=== PATIENT | male | born 1975 | race African-American/Black ===

== ENCOUNTER 2016-10-17 12:49 | Emergency (ER) | payer SELFPAY ==
[2016-10-17] MEDS ORDERED: Lidocaine 1% 20 ML MDV ONE (13:03)
[2016-10-17] MEDS ORDERED: Clindamycin 150 MG CAP ONE ×2 (13:18→13:20)
== END 2016-10-17 13:22 ==
LOC: NAV ERS 12:49
DX: K12.2 Cellulitis and abscess of mouth (principal); F17.210 Nicotine dependence, cigarettes, uncomplicated; Z79.899 Other long term (current) drug therapy
CPT/HCPCS: 40800; J2001

== ENCOUNTER 2017-04-27 02:59 | Emergency (ER) | payer SELFPAY ==
[2017-04-27] MEDS ORDERED: Ondansetron HCl/PF 4 MG/2 ML Vial ONE (03:28)
[2017-04-27] MEDS ORDERED: Pantoprazole 40 MG VIAL ONE ×2 (03:29→03:34)
[2017-04-27] MEDS ORDERED: Mag-Al Plus 1200 MG/1200 MG/120 MG/30 ML UDCUP ONE (03:29)
[2017-04-27] MEDS ORDERED: Lidocaine Viscous Sol 2% 15 ml UD Cup ONE (03:30)
[2017-04-27 03:36] LABS: #Basophils 0.1 thou/uL (0.0-0.2); #Eosinphils 0.3 thou/uL (0.0-0.7); #Monocytes 0.8 thou/uL (0.11-0.59); #Neutrophils 4.2 thou/uL (1.40-6.50); %Basophils 1.2 % (0.0-1.0); %Eosinophils 3.7 % (0.0-10.0); %Lymphocytes 27.4 % (21.0-51.0); %Monocytes 11.1 % (0.0-10.0); %Neutrophils 56.6 % (42.0-75.0); Hemoglobin 16.2 g/dL (14.0-18.0); Mean Corpuscular HGB CONC 33.8 g/dL (32.0-36.0); Mean Corpuscular Volume 91.8 fl (80.0-94.0); Mean Platelet Volume 9.4 fL (7.4-10.4); Platelet Count 197 thou/uL (130-400); RBC Distribution Width 12.5 % (11.5-14.5); Red Blood Cell (RBC) Count 5.22 mill/uL (4.70-6.10); White Blood Cell (WBC) Count 7.3 thou/uL (4.8-10.8)
[2017-04-27 03:52] LABS: ALT (SGPT) 37 U/L (8-55); AST (SGOT) 27 U/L (5-34); Albumin 3.8 g/dL (3.5-5.0); Alkaline Phosphatase 131 U/L (40-150); Anion Gap 12 mmol/L (10-20); BUN (Urea Nitrogen) 10 mg/dL (8.9-20.6); Bilirubin, Total 0.3 mg/dL (0.2-1.2); CKMB 2.2 ng/mL (0-6.6); Calc. Creatinine Clearance 0 mL/min (70-130); Calcium 9.1 mg/dL (7.8-10.44); Carbon Dioxide 22 mmol/L (22-29); Chloride 108 mmol/L (98-107); Estimated GFR-MDRD Greater than 90; Globulin 4.3 g/dL (2.4-3.5); Glucose 116 mg/dL (70-105); Lipase 18 U/L (8-78); Potassium 4.1 mmol/L (3.5-5.1); Protein, Total 8.1 g/dL (6.0-8.3); Sodium 138 mmol/L (136-145); Troponin I Less than 0.010 ng/mL (< 0.028)
[2017-04-27] MEDS ORDERED: Cyclobenzaprine 10 MG TAB ONE (04:25)
--- NOTE | 2017-04-27 07:58 | RAD ---
PA AND LATERAL VIEWS CHEST: HISTORY: Epigastric pain. FINDINGS: The heart size is normal. The lungs are expanded without focal areas of consolidation, pneumothorax , or pleural effusions. No acute osseous abnormalities are seen. IMPRESSION: No radiographic evidence of acute cardiopulmonary process. POS: [facility]
--- NOTE | 2017-04-27 08:10 | RAD ---
ABDOMEN 2 VIEWS: HISTORY: Epigastric pain. FINDINGS/IMPRESSION: No free air or differential fluid levels are seen. The bowel gas pattern is unremarkable. There ar e mild degenerative changes in the spine. POS: [facility]
== END 2017-04-27 04:40 | disposition home or self-care (01) ==
LOC: NAV ERS 02:59
DX: S39.011A Strain of muscle, fascia and tendon of abdomen, initial encounter (principal); F17.210 Nicotine dependence, cigarettes, uncomplicated; X50.9XXA Other and unspecified overexertion or strenuous movements or postures, initial encounter
CPT/HCPCS: 71020; 74020; 80053; 82150; 82553; 83690; 84484; 85025; 93005; 96374; C9113; J2270; J2405

== ENCOUNTER 2017-06-21 01:39 | Emergency (ER) | payer SELFPAY ==
[2017-06-21] MEDS ORDERED: Mag-Al Plus 1200 MG/1200 MG/120 MG/30 ML UDCUP ONE (02:23)
[2017-06-21] MEDS ORDERED: Famotidine 20 MG TAB ONE (02:24)
== END 2017-06-21 02:41 | disposition home or self-care (01) ==
LOC: NAV ERS 01:39
DX: K21.9 Gastro-esophageal reflux disease without esophagitis (principal); F17.210 Nicotine dependence, cigarettes, uncomplicated
CPT/HCPCS: 99283

== ENCOUNTER 2017-07-08 03:13 | Emergency (ER) | payer SELFPAY ==
[2017-07-08] MEDS ORDERED: Nitroglycerin 0.4 MG TAB (25 Tab Bottle) ONE (03:33)
[2017-07-08 03:51] LABS: PTT 27.7 SEC (22.9-36.1); Prothrombin Time 13.6 SEC (12.0-14.7)
[2017-07-08 03:59] LABS: ALT (SGPT) 25 U/L (8-55); AST (SGOT) 24 U/L (5-34); Albumin 3.9 g/dL (3.5-5.0); Alkaline Phosphatase 137 U/L (40-150); Anion Gap 14 mmol/L (10-20); BUN (Urea Nitrogen) 10 mg/dL (8.9-20.6); Bilirubin, Total 0.3 mg/dL (0.2-1.2); Calc. Creatinine Clearance 0 mL/min (70-130); Calcium 9.1 mg/dL (7.8-10.44); Carbon Dioxide 23 mmol/L (22-29); Chloride 106 mmol/L (98-107); Estimated GFR-MDRD 79; Globulin 4.2 g/dL (2.4-3.5); Glucose 106 mg/dL (70-105); Lipase 14 U/L (8-78); Magnesium 2.3 mg/dL (1.6-2.6); Potassium 3.9 mmol/L (3.5-5.1); Protein, Total 8.1 g/dL (6.0-8.3); Sodium 139 mmol/L (136-145)
[2017-07-08 04:00] LABS: CKMB 1.9 ng/mL (0-6.6); Troponin I Less than 0.010 ng/mL (< 0.028)
[2017-07-08 04:01] LABS: Band 9 % (5-11); Eosinophils 4 % (0-10); Hemoglobin 16.4 g/dL (14.0-18.0); Lymphocytes 21 % (21-51); MDiff Complete? YES; Mean Corpuscular HGB CONC 31.6 g/dL (32.0-36.0); Mean Corpuscular Hemoglobin 31.1 pg (27.0-31.0); Mean Corpuscular Volume 98.5 fl (80.0-94.0); Mean Platelet Volume 8.9 fL (7.4-10.4); Monocytes 2 % (0-10); Neutrophil 62 % (42-75); PLT Morphology Comment Appears Adequate; Platelet Count 221 thou/uL (130-400); RBC Distribution Width 12.3 % (11.5-14.5); RBC Morphology Normal; Reactive Lymphocytes 2 % (0-10); Red Blood Cell (RBC) Count 5.29 mill/uL (4.70-6.10); White Blood Cell (WBC) Count 9.5 thou/uL (4.8-10.8)
[2017-07-08 04:29] LABS: Bilirubin Negative (Negative); Blood, Urine Trace (Negative); Clarity Clear (Clear); Glucose, Urine (Dipstick) Negative (Negative); Leukocyte Negative (Negative); Nitrite Negative (Negative); Protein, Urine (Dipstick) Negative (Neg-Trace); Urobilinogen 0.2 mg/dL (0.2-1.0); pH, Urine 5.5 (5.0-9.0)
[2017-07-08 04:36] LABS: Bacteria/HPF Rare-Few HPF (None Seen); RBC/HPF 0-3 HPF (0-3); Squamous Epithelial None Seen HPF (0-3); WBC/HPF 0-3 HPF (0-3)
[2017-07-08 04:38] LABS: Amphetamine Not Detected (NotDetected); Barbiturates Screen Not Detected (NotDetected); Benzodiazepine Screen Not Detected (NotDetected); Cocaine Metabolite Screen Detected (NotDetected); Medtox Control Line Valid? VALID (VALID); Methadone Not Detected (NotDetected); Methamphetamine Not Detected (NotDetected); Opiate Screen Not Detected (NotDetected); Oxycodone Screen Not Detected (NotDetected); Phencyclidine (PCP) Not Detected (NotDetected); THC/Cannabinoid Screen Not Detected (NotDetected); Tricyclic Screen Not Detected (NotDetected)
--- NOTE | 2017-07-08 08:57 | RAD ---
PORTABLE AP CHEST XRAY: DATE: 07/08/17. HISTORY: Epigastric pain. COMPARISON: 04/27/17. FINDINGS: Cardiac silhouette and pulmonary vasculature are within normal limits. The lungs remain clear. Ther e has been no interval change from the prior exam. IMPRESSION: No acute cardiopulmonary process. POS: [facility]
== END 2017-07-08 04:50 | disposition home or self-care (01) ==
LOC: NAV ERS 03:13
DX: F14.10 Cocaine abuse, uncomplicated (principal); F17.210 Nicotine dependence, cigarettes, uncomplicated; Z79.899 Other long term (current) drug therapy
CPT/HCPCS: 71010; 80053; 80306; 81003; 81015; 82553; 83690; 83735; 84484; 85025; 85610; 85730; 93005

== ENCOUNTER → 2017-07-11 | Emergency (ER) | payer SELFPAY ==
[~2017-07-11] MED LIST: Cephalexin 250 MG CAP ONE; Ibuprofen 200 MG TAB ONE; Lidocaine 1% 20 ML MDV ONE; levETIRAcetam 500 MG TAB ONE
== END ==
LOC: NAV ERS 00:31
DX: K04.7 Periapical abscess without sinus (principal); K13.79 Other lesions of oral mucosa; Z87.891 Personal history of nicotine dependence; Z79.899 Other long term (current) drug therapy
CPT/HCPCS: 99282; J2001

== ENCOUNTER 2017-07-13 07:31 | Emergency (ER) | payer SELFPAY ==
[2017-07-13] MEDS ORDERED: Ibuprofen 800 MG TAB ONE (07:53)
[2017-07-13] MEDS ORDERED: Cephalexin 250 MG CAP ONE (07:53)
== END 2017-07-13 08:02 | disposition home or self-care (01) ==
LOC: NAV ERS 07:31
DX: K02.9 Dental caries, unspecified (principal); K27.9 Peptic ulcer, site unspecified, unspecified as acute or chronic, without hemorrhage or perforation; Z87.891 Personal history of nicotine dependence
CPT/HCPCS: 99282

== ENCOUNTER 2017-10-24 20:30 | Emergency (ER) | payer SELFPAY ==
--- NOTE | 2017-10-24 21:14 | CT ---
CT CERVICAL SPINE WITH CORONAL AND SAGITTAL REFORMATIONS: 10/24/17 HISTORY: Injury. Neck pain. FINDINGS/IMPRESSION: There are degenerative changes in the cervical spine. There is loss of cervical lordosis with mild re versal. No acute fracture or subluxation is identified. POS: [facility]
--- NOTE | 2017-10-24 21:20 | RAD ---
RIGHT SHOULDER THREE VIEWS: 10/24/17 HISTORY: Injury. Right shoulder pain. FINDINGS/IMPRESSION: There are degenerative changes in the acromioclavicular joint. No acute fracture or dislocation is id entified. POS: [facility]
== END 2017-10-24 21:38 ==
LOC: NAV ERS 20:30
DX: M25.511 Pain in right shoulder (principal); M54.2 Cervicalgia; F17.210 Nicotine dependence, cigarettes, uncomplicated; Z79.899 Other long term (current) drug therapy; Y35.893A Legal intervention involving other specified means, suspect injured, initial encounter
CPT/HCPCS: 72125